=== PATIENT | female | born 1995 | race Caucasian/White ===

== ENCOUNTER 2024-04-29 07:23 | Outpatient (CLI) | payer OTHER ==
[2024-04-29 12:20] LABS: HCT - HEMATOCRIT 30.6 % (37.0-47.0); HGB - HEMOGLOBIN 9.8 g/dL (12.0-16.0); MEAN CORPUSCULAR HEMOGLOBIN 30.3 pg (27.0-31.0); MEAN CORPUSCULAR VOLUME 94.7 fL (81.0-99.0); RED BLOOD COUNT 3.23 10^6/uL (4.20-5.40); RED CELL DISTRIBUTION WIDTH 13.4 % (12.0-15.0); WHITE BLOOD COUNT 11.1 x10^3/uL (4.8-10.8)
[2024-04-30 05:13] LABS: RPR Non Reactive (Non Reactive)
== END 2024-04-29 07:24 ==
LOC: LAB.N 07:23
PROVIDERS: ATTEND Obstetrics & Gynecology
DX: Z34.80 Encounter for supervision of other normal pregnancy, unspecified trimester (principal)
CPT/HCPCS: 36415; 82950; 85027; 86592

== ENCOUNTER 2024-05-03 08:00 | Outpatient (CLI) | payer OTHER ==
[2024-05-03 15:44] LABS: BILIRUBIN,URINE NEGATIVE (NEGATIVE); GLUCOSE, URINE (UA) NEGATIVE (NEGATIVE); KETONES,URINE (UA) NEGATIVE (NEGATIVE); LEUKOCYTE ESTERASE, URINE NEGATIVE (NEGATIVE); NITRITE,URINE NEGATIVE (NEGATIVE); OCCULT BLOOD,URINE TRACE-LYSE (NEGATIVE); PROTEIN,URINE NEGATIVE (NEGATIVE); UROBILINOGEN,URINE 0.2 (NORMAL) E.U./dL (NORMAL)
[2024-05-03 16:01] LABS: CLARITY,URINE CLEAR (CLEAR)
[2024-05-03 16:02] LABS: BACTERIA,URINE None Seen /HPF (None Seen); MUCUS,URINE Few Strands; RBC,URINE 0-5 /HPF (0-5); SQUAMOUS EPITHELIAL CELL,UR NONE SEEN (<= Few); WBC,URINE 0-3 /HPF (0-5)
== END 2024-05-03 23:59 | disposition home or self-care (01) ==
LOC: LAB.WC 08:00
PROVIDERS: ATTEND Obstetrics & Gynecology
DX: R30.0 Dysuria (principal)
CPT/HCPCS: 81001; 87086

== ENCOUNTER 2024-05-27 09:14 | Outpatient (CLI) | payer OTHER ==
[2024-05-27 12:09] LABS: HCT - HEMATOCRIT 34.6 % (37.0-47.0); HGB - HEMOGLOBIN 10.8 g/dL (12.0-16.0); MEAN CORPUSCULAR HEMOGLOBIN 30.2 pg (27.0-31.0); MEAN CORPUSCULAR HGB CONC 31.2 g/dL (32.0-36.0); MEAN CORPUSCULAR VOLUME 96.6 fL (81.0-99.0); MEAN PLATELET VOLUME 11.7 fL (7.9-10.8); RED BLOOD COUNT 3.58 10^6/uL (4.20-5.40); RED CELL DISTRIBUTION WIDTH 15.8 % (12.0-15.0); WHITE BLOOD COUNT 8.3 x10^3/uL (4.8-10.8)
== END 2024-05-27 09:15 | disposition home or self-care (01) ==
LOC: LAB.N 09:14
PROVIDERS: ATTEND Obstetrics & Gynecology
DX: Z34.80 Encounter for supervision of other normal pregnancy, unspecified trimester (principal)
CPT/HCPCS: 36415; 82728; 85027

== ENCOUNTER 2024-05-31 08:00 | Outpatient (CLI) | payer OTHER | END 2024-05-31 23:59 | disposition home or self-care (01) | LOC: LAB.WC 08:00 | PROVIDERS: ATTEND Obstetrics & Gynecology | DX: Z36.85 Encounter for antenatal screening for Streptococcus B (principal) | CPT/HCPCS: 87797 ==

== ENCOUNTER 2024-06-15 10:57 | Outpatient (CLI) | payer OTHER ==
[2024-06-15 11:19] LABS: RUPTURE OF MEMBRANES PLUS NEGATIVE (NEGATIVE)
== END 2024-06-15 10:58 | disposition home or self-care (01) ==
LOC: LAB.WC 10:57
PROVIDERS: ATTEND Obstetrics & Gynecology
DX: O99.891 Other specified diseases and conditions complicating pregnancy (principal); N89.8 Other specified noninflammatory disorders of vagina
CPT/HCPCS: 84112

== ENCOUNTER 2024-06-18 20:55 | Observation (INO) | payer OTHER ==
[2024-06-18] MEDS ORDERED: OXYTOCIN 10 UNIT/ML VIAL IM PRN (21:03)
[2024-06-18] MEDS ORDERED: miSOPROStoL 200 MCG TABLET BC PRN (21:03)
[2024-06-18] MEDS ORDERED: SODIUM CHLORIDE FLUSH 0.9% 10 ML SYRINGE IVP PRN (21:03)
[2024-06-18] MEDS ORDERED: CARBOPROST TROMETHAMINE 250 MCG/ML VIAL IM PRN (21:03)
[2024-06-18] MEDS ORDERED: lidocaine 1% 20 ML MDV ID PRN (21:03)
[2024-06-18] MEDS ORDERED: OXYTOCIN/SODIUM CHLORIDE 500 ML IV PRN (21:03)
[2024-06-18] MEDS ORDERED: TRANEXAMIC ACID IN NACL 1,000 MG/100 ML BAG IV PRN (21:03)
[2024-06-18] MEDS ORDERED: METHYLERGONOVINE 0.2 MG/ML VIAL IM PRN (21:03)
[2024-06-18] MEDS ORDERED: NIFEdipine 10 MG CAPSULE PO PRN (21:47)
[2024-06-18] MEDS ORDERED: TERBUTALINE 1 MG/ML VIAL SUBQ PRN (21:47)
[2024-06-18] MEDS ORDERED: hydrALAZINE INJ 20 MG/ML VIAL IVP PRN ×2 (21:47)
[2024-06-18] MEDS ORDERED: LABETALOL 20 MG/4 ML SYRINGE IVP PRN ×3 (21:47)
[2024-06-18] MEDS ORDERED: fentaNYL 100 MCG/2 ML VIAL IVP PRN (21:47)
[2024-06-18] MEDS ORDERED: ACETAMINOPHEN 500 MG TABLET PO PRN (21:47)
[2024-06-18 21:57] LABS: BASOPHILS % (AUTO) 0.1 %; EOSINOPHILS # (AUTO) 0.1 10^3/uL (0.0-0.7); EOSINOPHILS % (AUTO) 0.7 %; HCT - HEMATOCRIT 36.2 % (37.0-47.0); HGB - HEMOGLOBIN 11.3 g/dL (12.0-16.0); LYMPHOCYTES # (AUTO) 1.6 10^3/uL (1.5-3.5); LYMPHOCYTES % (AUTO) 19.6 %; MEAN CORPUSCULAR HEMOGLOBIN 29.4 pg (27.0-31.0); MEAN CORPUSCULAR HGB CONC 31.2 g/dL (32.0-36.0); MEAN CORPUSCULAR VOLUME 94.3 fL (81.0-99.0); MEAN PLATELET VOLUME 12.3 fL (7.9-10.8); MONOCYTES # (AUTO) 0.7 10^3/uL (0.0-1.0); MONOCYTES % (AUTO) 8.2 %; NEUTROPHILS # (AUTO) 5.9 10^3/uL (1.5-6.6); PLT - PLATELET COUNT 157 10^3/uL (130-450); RED BLOOD COUNT 3.84 10^6/uL (4.20-5.40); RED CELL DISTRIBUTION WIDTH 15.6 % (12.0-15.0); WHITE BLOOD COUNT 8.3 x10^3/uL (4.8-10.8)
[2024-06-18] MEDS ORDERED: LACTATED RINGERS 1,000 ML IV SCH (22:00)
[2024-06-18] MEDS: miSOPROStoL 100 MCG TABLET BC SCH (22:06)
[2024-06-19] MEDS ORDERED: SODIUM CHLORIDE FLUSH 0.9% 10 ML SYRINGE IVP SCH (01:00)
[2024-06-19 06:13] VITALS: BP 107/61; O2SAT 98
--- NOTE | 2024-06-19 07:03 | PHARMACY PROGRESS NOTE ---
- Best Possible Medication History Admit Date and Time: 06/18/242102 Processed by: Nursing As the person ultimately responsible for medication therapy, providers are able to order a medication from an existing home medication list in [facility] via the "Reconcile Routine" prior to Confirmation of that medication by unit support representative. Such practice is discouraged except when the physician, in their clinical judgment, deems that a medical need exists for a medication without regard to previous use.
--- NOTE | 2024-06-19 11:17 | ANESTHESIA ---
Pre-Anesthesia VS, & Labs - Diagnosis labor induction - Procedure labor epidural Vital Signs: Temp Pulse Resp BP Pulse Ox O2 Flow Rate 36.6 C 77 16 107/61 98 06/19/24 06:00 06/19/24 06:00 06/19/24 06:00 06/19/24 06:00 06/19/24 06:00 Height: 5 ft 2 in Weight (kg): 82.554 kg Body Mass Index: 33.3 BMI Classification: Obese - NPO Other (clears after epidural placement) - Is Patient ?: Yes - Lab Results Current Lab Results: Laboratory Tests 06/18/24 22:12: Blood Type A POSITIVE, Antibody Screen NEGATIVE 06/18/24 21:15: Blood Type Recheck A POSITIVE 06/18/24 21:15: WBC 8.3, RBC 3.84 L, Hgb 11.3 L, Hct 36.2 L, MCV 94.3, MCH 29.4, MCHC 31.2 L, RDW 15.6 H, Plt Count 157, MPV 12.3 H, Neut # (Auto) 5.9, Lymph # (Auto) 1.6, [place] # (Auto) 0.7, Eos # (Auto) 0.1, Baso # (Auto) 0.0, Absolute Nucleated RBC 0.00, Nucleated RBC % 0.0 Fish Bones: 06/18/24 21:15 Home Medications and Allergies Home Medications: Ambulatory Orders Aspirin [Adult Aspirin Regimen] 81 mg PO DAILY 06/18/24 Breast Pump 1 each MC PRN PRN 06/18/24 Pnv No.95/Ferrous Fum/Folic AC [ Tablet] 1 each PO DAILY 06/18/24 Active Medications Acetaminophen (Acetaminophen 500 Mg Tablet) 1,000 mg PO Q8H PRN PRN Reason: Mild Pain or Fever>38C(100.4F) Carboprost Tromethamine (Carboprost Tromethamine 250 Mcg/Ml Vial) 250 mcg IM Q15M PRN PRN Reason: Step 4: Hemorrhage protocol Fentanyl (Fentanyl 100 Mcg/2 Ml Vial) 50 mcg IVP Q1H PRN PRN Reason: Severe Pain (score 7-10) Hydralazine HCl (Hydralazine Inj 20 Mg/Ml Vial) 5 - 10 mg IVP Q20M PRN; Protocol PRN Reason: SBP> or= 160 OR DBP> or= 110 Hydralazine HCl (Hydralazine Inj 20 Mg/Ml Vial) 10 mg IVP .ONCE PRN; Protocol PRN Reason: SBP> or= 160 OR DBP> or= 110 Oxytocin/Sodium Chloride (Pitocin/Sodium Chloride) 500 mls @ 999 mls/hr IV PRN PRN; Protocol PRN Reason: POST- HEMORR PREVENTION Stop: 06/23/24 21:04 Tranexamic Acid (Tranexamic 1,000 Mg/100ml-Nacl) 1,000 mg in 100 mls @ 600 mls/hr IV .ONCE PRN PRN Reason: EBL >1200mL and within 3hr Stop: 06/23/24 21:04 Lactated Ringer's (Lr) 1,000 mls @ 100 mls/hr IV .Q10H DIANA Labetalol HCl (Labetalol 20 Mg/4 Ml Syringe) 20 - 80 mg IVP Q10M PRN; Protocol PRN Reason: SBP> or= 160 OR DBP> or= 110 Labetalol HCl (Labetalol 20 Mg/4 Ml Syringe) 20 mg IVP .ONCE PRN; Protocol PRN Reason: SBP> or= 160 OR DBP> or= 110 Labetalol HCl (Labetalol 20 Mg/4 Ml Syringe) 20 - 40 mg IVP Q10M PRN; Protocol PRN Reason: SBP> or= 160 OR DBP> or= 110 Lidocaine HCl (Lidocaine 1% 20 Ml Mdv) 20 ml ID .ONCE PRN PRN Reason: PERINEAL REPAIR Stop: 06/23/24 21:04 Methylergonovine Maleate (Methylergonovine 0.2 Mg/Ml Vial) 0.2 mg IM .ONCE PRN PRN Reason: Step 2: Hemorrhage protocol Stop: 06/23/24 21:04 Misoprostol (Misoprostol 200 Mcg Tablet) 800 mcg BC .ONCE PRN PRN Reason: Step 3: Hemorrhage protocol Stop: 06/23/24 21:04 Misoprostol (Misoprostol 100 Mcg Tablet) 50 mcg BC Q4H DIANA Stop: 06/19/24 18:01 Last Admin: 06/19/24 08:27 Dose: 50 mcg Nifedipine (Nifedipine 10 Mg Capsule) 10 - 20 mg PO Q20M PRN; Protocol PRN Reason: SBP> or= 160 OR DBP> or= 110 Oxytocin (Oxytocin 10 Unit/Ml Vial) 10 unit IM .ONCE PRN PRN Reason: Step one: If no IV access Stop: 06/23/24 21:04 Sodium Chloride (Sodium Chloride Flush 0.9% 10 Ml Syringe) 10 ml IVP 0100,0900,1700 DIANA Sodium Chloride (Sodium Chloride Flush 0.9% 10 Ml Syringe) 10 ml IVP PRN PRN PRN Reason: NEEDED PER PROVIDER ORDERS Terbutaline Sulfate (Terbutaline 1 Mg/Ml Vial) 0.25 mg SUBQ .ONCE PRN PRN Reason: Tachystole Aspirin [Adult Aspirin Regimen] 81 mg PO DAILY 06/18/24 Breast Pump 1 each MC PRN PRN 06/18/24 Pnv No.95/Ferrous Fum/Folic AC [ Tablet] 1 each PO DAILY 06/18/24 Allergies/Adverse Reactions: Allergies Allergy/AdvReac Type Severity Reaction Status Date / Time Penicillins Allergy Rash Verified 06/18/24 23:22 Anes History & Medical History - Anesthetic History Anesthesia Complications: reports: No previous complications - Medical History Smoking Status: Never smoker History of Cancer?: No Exam General: Alert, Oriented x3 Dental: WNL Mouth Opening: Greater than 4 Fingerbreadths Neck Mobility: Normal Mallampati classification: II Thyromental Distance: greater than 6 cm Respiratory: Lungs clear Cardiovascular: Regular rate Plan Anesthesia Type: Epidural Consent for Procedure(s) Verified and Reviewed: Yes Code Status: Attempt Resuscitation ASA classification: 2-Mild systemic disease Is this case an emergency?: No
[2024-06-19] MEDS ORDERED: PRENATAL VITAMIN TABLET PO SCH (12:00)
[2024-06-19] MEDS: miSOPROStoL 100 MCG TABLET VG SCH (14:31)
--- NOTE | 2024-06-19 18:37 | PROVIDER PROGRESS NOTE ---
Labor Progress Note - Uterine Monitoring Uterine Monitoring Mode: positive: External toco Contraction Frequency (min/apart): 2-5 Contraction Intensity: positive: Mild to moderate Uterine Resting Tone: positive: Soft - Monitoring Monitor Mode: positive: External ultrasound Heart Rate Variability: positive: Moderate (6-25 bmp) Accelerations: positive: Present, 15x15 Decelerations: positive: None Strip Review: positive: Category I - Vaginal Exam Dilation (in cm): 0 Effacement (%): 70 Station: -3 Cervical Position: Posterior - Labor Progress Note Labor Progress Note/Additional Text: more uncomfortable with contractions but still closed. had miso x 3 buccal and then 1 vaginal 4 hrs ago. all 50 mcg. very frustrated, crying. it has been with last 2 doses that we had to wait 2 hours or so to give as she was mane so much. she was really hoping to avoid pitocin. but now wants anything to help her baby come. discussed that this is elective induction and we want to have a safe, low stress delivery. seems her body is just not ready yet. I recommend that she waits for 1-2 hours and see if these contractions wear off. if they do, I recommend that she go home and come back in a day or two. with this she shed tears. She was really hoping for labor. but I don't want to do anything overly extreme in the context of elective induction. with her first she says she went into labor with only 1 dose of miso.
--- NOTE | 2024-06-19 19:55 | DISCHARGE SUMMARY ---
Discharge Summary Admit Date: 06/18/24 Discharge Date: 06/19/24 Discharging Provider: Ashley Mercado MD Code Status: Attempt Resuscitation Condition at Discharge: Good Discharge Disposition: 01 Home, Self Care - DIAGNOSES Admission Diagnoses: term , elective induction of labor. Discharge Diagnoses with Status of Each Condition: term , not in labor - HPI History of Present Illness: present for elective labor induction at 39 weeks with her 2nd child. Has childcare and was hoping to deliver while her family is in town. otherwise uncomplicated. - HOSPITAL COURSE Hospital Course: Patient received a total of 4 doses of 50 mcg of misoprostol, 3 buccal and 1 vaginally. She contracted painfully after the last 3 doses and the next dose was put off for about 2 hours. In spite of all these contractions, her cervix remained closed. She was very frustrated. Given that cervix was closed, I would not be able to place a catheter and do not recommend pitocin. I recommend that she go home. We can try again in a couple days. - ALLERGIES Allergies/Adverse Reactions: Allergies Allergy/AdvReac Type Severity Reaction Status Date / Time Penicillins Allergy Rash Verified 06/18/24 23:22 - MEDICATIONS Home Medications: Ambulatory Orders Medication Instructions Recorded Confirmed Aspirin [Adult Aspirin Regimen] 81 mg PO DAILY 06/18/24 06/18/24 Breast Pump 1 each MC PRN PRN 06/18/24 06/18/24 Pnv No.95/Ferrous Fum/Folic AC 1 each PO DAILY 06/18/24 06/18/24 [ Tablet] - PHYSICAL EXAM AT DISCHARGE General Appearance: positive: No acute distress Respiratory: positive: No respiratory distress Cardiovascular: positive: Regular rate & rhythm Physical Exam Other/Comments: cervix closed, 70% and high. very posterior. - LABS Result Diagrams: 06/18/24 21:15 - FOLLOW UP Follow Up: we will call her tomorrow to make a plan. - TIME SPENT Time Spent in Discharge (Minutes): 30
== END 2024-06-19 20:10 | disposition home or self-care (01) ==
LOC: WFO 20:55 → FBP 20:59 → WFO 21:02 → FBP 21:03
PROVIDERS: ADMIT Obstetrics & Gynecology; ATTEND Obstetrics & Gynecology
DX: O61.0 Failed medical induction of labor (principal); Z3A.39 39 weeks gestation of pregnancy; O99.013 Anemia complicating pregnancy, third trimester
CPT/HCPCS: 36415; 85025; 86850; 86900; 86901; A9270; G0378; 99215

== ENCOUNTER 2024-06-20 01:52 | Inpatient (IN) | payer OTHER ==
[2024-06-20] MEDS ORDERED: CARBOPROST TROMETHAMINE 250 MCG/ML VIAL IM PRN (02:10)
[2024-06-20] MEDS ORDERED: lidocaine 1% 20 ML MDV ID PRN (02:10)
[2024-06-20] MEDS ORDERED: hydrALAZINE INJ 20 MG/ML VIAL IVP PRN ×2 (02:10)
[2024-06-20] MEDS ORDERED: METHYLERGONOVINE 0.2 MG/ML VIAL IM PRN (02:10)
[2024-06-20] MEDS ORDERED: TERBUTALINE 1 MG/ML VIAL SUBQ PRN (02:10)
[2024-06-20] MEDS ORDERED: OXYTOCIN 10 UNIT/ML VIAL IM PRN (02:10)
[2024-06-20] MEDS ORDERED: TRANEXAMIC ACID IN NACL 1,000 MG/100 ML BAG IV PRN (02:10)
[2024-06-20] MEDS ORDERED: SODIUM CHLORIDE FLUSH 0.9% 10 ML SYRINGE IVP PRN (02:10)
[2024-06-20] MEDS ORDERED: miSOPROStoL 200 MCG TABLET BC PRN (02:10)
[2024-06-20] MEDS ORDERED: LABETALOL 20 MG/4 ML SYRINGE IVP PRN ×3 (02:10)
[2024-06-20] MEDS ORDERED: miSOPROStoL 200 MCG TABLET PR PRN (02:10)
[2024-06-20] MEDS ORDERED: NIFEdipine 10 MG CAPSULE PO PRN (02:10)
[2024-06-20] MEDS: fentaNYL 100 MCG/2 ML VIAL IVP PRN (02:20)
[2024-06-20] MEDS: LACTATED RINGERS 1,000 ML IV SCH (02:25)
[2024-06-20] MEDS: LACTATED RINGERS 1,000 ML IV PRN (02:26)
[2024-06-20] MEDS ORDERED: ROPIVACAINE 0.2% 200 MG/100 ML BAG EP ONE (02:38)
[2024-06-20] MEDS ORDERED: LIDOCAINE 2%-EPI 1:100000 20 ML MDV ONE (02:38)
[2024-06-20 02:44] LABS: BASOPHILS % (AUTO) 0.1 %; EOSINOPHILS % (AUTO) 0.1 %; HCT - HEMATOCRIT 39.3 % (37.0-47.0); HGB - HEMOGLOBIN 12.3 g/dL (12.0-16.0); LYMPHOCYTES # (AUTO) 1.4 10^3/uL (1.5-3.5); LYMPHOCYTES % (AUTO) 10.2 %; MEAN CORPUSCULAR HEMOGLOBIN 29.2 pg (27.0-31.0); MEAN CORPUSCULAR HGB CONC 31.3 g/dL (32.0-36.0); MEAN CORPUSCULAR VOLUME 93.3 fL (81.0-99.0); MEAN PLATELET VOLUME 12.5 fL (7.9-10.8); MONOCYTES # (AUTO) 0.7 10^3/uL (0.0-1.0); MONOCYTES % (AUTO) 4.9 %; NEUTROPHILS # (AUTO) 11.5 10^3/uL (1.5-6.6); NEUTROPHILS % (AUTO) 84.3 %; PLT - PLATELET COUNT 165 10^3/uL (130-450); RED BLOOD COUNT 4.21 10^6/uL (4.20-5.40); RED CELL DISTRIBUTION WIDTH 15.5 % (12.0-15.0); WHITE BLOOD COUNT 13.6 x10^3/uL (4.8-10.8)
[2024-06-20] MEDS ORDERED: SODIUM CHLORIDE FLUSH 0.9% 10 ML SYRINGE IVP SCH (03:00)
[2024-06-20 03:06] LABS: ALBUMIN 3.5 g/dL (3.2-5.5); ALBUMIN/GLOBULIN RATIO 1.1 (1.0-2.2); BILIRUBIN,TOTAL 0.5 mg/dL (0.2-1.0); CALCIUM 9.2 mg/dL (8.5-10.3); CREATININE 0.6 mg/dL (0.6-1.3); POTASSIUM 3.8 mmol/L (3.5-4.5); TOTAL PROTEIN 6.8 g/dL (6.4-8.9)
--- NOTE | 2024-06-20 03:23 | HISTORY & PHYSICAL EXAMINATION ---
Admit History - : 2 Parity: 1 Care: positive: IW, Other (transfered care to us at 30 weeks. [place] [employer] Risk/History: positive: None Complications This : positive: None Smoking Status: Never smoker - Mother's Labs Mother's Blood Type: positive: A Mother's RH: positive: Positive GBS: positive: Group B Step Negative Rubella Status: positive: Immune - Other Maternal History Other Maternal History: presents with painful contractions. Was admitted 06/18 for induction. had miso x 4 over 24 hours and was still closed so went home about 1999. She continued to be uncomfortable at home. was able to nap for about an hour and then came back in. no SROM. just more painful contractions. ready for epidural. confirmed to be vertex at start of induction by ultrasound. uncomplicated. did have anemia and was started on po iron 05/03. hct 30% then. now 39%. 1 hour glucose 138. weight gain about 40 pounds. 12 pounds with us since 30 weeks. received TDAP at 30 weeks. Flu and RSV vaccines last week. rubella and varicella are immune. no headache. 1+ swelling. first c/b gestational htn so on ASA this . no HTN. EFW 8 pounds. - HPI Current EDU 06/25/24 Gestation 39 Weeks and 2 Days 2 Vital Signs Temperature 97.9 F 06/20/24 02:17 Temperature 97.9 F 06/20/24 02:17 Heart Rate Respiratory Rate Blood Pressure O2 Saturation If not protocol: Oxygen Flow, liters/minute Meds/Allgy - Home Medications Home Medications: Ambulatory Orders Medication Instructions Recorded Confirmed Aspirin [Adult Aspirin Regimen] 81 mg PO DAILY 06/18/24 06/18/24 Breast Pump 1 each MC PRN PRN 06/18/24 06/18/24 Pnv No.95/Ferrous Fum/Folic AC 1 each PO DAILY 06/18/24 06/18/24 [ Tablet] - Allergies Allergies/Adverse Reactions: Allergies Allergy/AdvReac Type Severity Reaction Status Date / Time Penicillins Allergy Rash Verified 06/18/24 23:22 Review of Systems - Other Findings Other Findings: no headache. good movement. no SROM Physical - Abdominal Exam Vital Signs: Temp Pulse Resp BP Pulse Ox O2 Flow Rate 97.9 F 06/20/24 02:17 Contraction Frequency (min/apart): q3 Contraction Intensity: positive: Moderate Uterine Resting Tone: positive: Soft - Monitoring Strip Review: positive: Category I - Presentation Presentation: positive: Vertex - Vaginal Exam Membranes: positive: Membranes intact Dilation (in cm): 3 Effacement (%): 90 Station: positive: -2 (per RN) Plan for Labor - Plan For Labor I expect patient to be DC'd or transferred within 96 hours.: Yes Plan for Labor: admit for labor at term. epidural being placed now. AROM when comfortable. Anticipate .
[2024-06-20] MEDS ORDERED: ROPIVACAINE 0.2% 200 MG/100 ML BAG EP PRN (03:34)
[2024-06-20] MEDS ORDERED: ePHEDrine 50 MG/ML VIAL IVP PRN (03:34)
[2024-06-20] MEDS ORDERED: NALOXONE 0.4 MG/ML VIAL IVP PRN (03:34)
[2024-06-20] MEDS ORDERED: NALBUPHINE 10 MG/ML AMP IVP PRN (03:34)
[2024-06-20] MEDS ORDERED: diphenhydrAMINE INJ 50 MG/ML VIAL IVP PRN (03:34)
[2024-06-20] MEDS ORDERED: METOCLOPRAMIDE 10 MG/2 ML VIAL IVP PRN (03:34)
[2024-06-20] MEDS ORDERED: ONDANSETRON 4 MG/2 ML VIAL IVP PRN (03:34)
--- NOTE | 2024-06-20 03:37 | PROVIDER PROGRESS NOTE ---
Labor Progress Note - Uterine Monitoring Uterine Monitoring Mode: positive: External toco Contraction Frequency (min/apart): 3-4 Contraction Intensity: positive: Moderate to strong Uterine Resting Tone: positive: Soft - Monitoring Monitor Mode: positive: External ultrasound Heart Rate Variability: positive: Moderate (6-25 bmp) Accelerations: positive: Present, 15x15 Decelerations: positive: Variable, Intermittent (<50% x20 min) Strip Review: positive: Category I - Vaginal Exam Dilation (in cm): 5 Effacement (%): 90 Station: -3 Cervical Position: Midposition - Labor Progress Note Labor Progress Note/Additional Text: AROM and clear fluid. epidural and comfortable. hopefully baby's head will come down and she will have baby in next few hours.
[2024-06-20] MEDS: OXYTOCIN/SODIUM CHLORIDE 500 ML IV PRN (10:01)
[2024-06-20] MEDS ORDERED: WITCH HAZEL/GLYCERIN 1 PAD TOP PRN (10:32)
[2024-06-20] MEDS ORDERED: HYDROCORTISONE 1% CREAM 28 GM TUBE PR PRN (10:32)
[2024-06-20] MEDS ORDERED: MEASLES,MUMPS & RUBELLA VACC 0.5 ML VIAL SUBQ ONE (10:32)
--- NOTE | 2024-06-20 10:50 | DELIVERY NOTE ---
Delivery Note - Labor Labor: positive: Augmented by ARM, Augmented by oxytocin - Delivery Method Delivery Method: positive: Vacuum assist (For distress) - Cervical Ripening Method Cervical Ripening Method: positive: Misoprostil - Presentation Presentation: positive: Vertex, NADINE - left occiput anterior - Nuchal Cord Nuchal Cord: positive: Present (x1, reduced after delivery) - Anesthetic Anesthetic Type: - Amniotic Fluid Description Amniotic Fluid Description: positive: Clear - Vacuum Use Indication for Vacuum Use: positive: Suspicion of immediate or potential compromise Type of Vacuum Cup: positive: Cup: Rigid Vacuum Extraction: positive: Successful Number of pop-offs: 0 - Episiotomy Type Episiotomy Type: positive: None - Laceration Laceration: positive: None - Delivery Outcome Delivery Outcome: positive: Livebirth - : positive: Stimulated, Warmed, Warmer used sex: positive: Male - Cord Cord: positive: 3 vessels - Placenta Placenta: positive: Intact, Spontaneous - Estimated Blood Loss Estimated Blood Loss (in cc): 100 - Post Delivery Events Post Delivery Events: positive: Shoulder dystocia - Delivery Comments (Free Text/Narrative) Delivery Comments (Free Text/Narrative): /+2. Maternal pushing with good efforts. Pushed and head descended to +3 and with pushing but now with repetitive decelerations to 90s. Informed verbal consent for VAVD obtained. Comfortable with epidural. Kiwi vacuum applied to flexion point just prior to contraction. Delivery of head achieved with one contraction with vacuum use. No detachments. Vacuum removed. Nuchal cord noted, this was reduced after body delivered. Head retraction noted against perineum and shoulder dystocia identified and called for assistance. Elvira maneuver and then left posterior arm delivered. Body then delivered. Time from head delivery to body 80 seconds. Baby placed on mother's abdomen and cord clamped and cut. Baby brought to warmer and evaluated by pediatric team. Fundus firm. Placenta delivered spontaneously and intact, 3vc. Vagina and perineum inspected- no lacerations. EBL ~ 100cc.
[2024-06-20] MEDS ORDERED: LACTATED RINGERS 1,000 ML IV SCH (11:00)
[2024-06-20] MEDS: IBUPROFEN 800 MG TABLET PO SCH (11:07)
[2024-06-20] MEDS: ACETAMINOPHEN 500 MG TABLET PO SCH (11:07)
--- NOTE | 2024-06-20 11:24 | PHARMACY PROGRESS NOTE ---
- Best Possible Medication History Admit Date and Time: 06/20/24 0210 Processed by: Pharmacy Medications reviewed in ED?: No Medication History completed: Yes Secondary Source(s): Pharmacy records, Insurance records As the person ultimately responsible for medication therapy, providers are able to order a medication from an existing home medication list in [facility] via the "Reconcile Routine" prior to Confirmation of that medication by administrative support technician. Such practice is discouraged except when the physician, in their clinical judgment, deems that a medical need exists for a medication without regard to previous use.
[2024-06-20] MEDS: DOCUSATE SODIUM 100 MG CAPSULE PO SCH (23:27)
[2024-06-21 10:12] VITALS: BP 122/71; O2SAT 98
--- NOTE | 2024-06-21 10:23 | DISCHARGE SUMMARY ---
Discharge Summary Admit Date: 06/20/24 Discharge Date: 06/21/24 Discharging Provider: Sunni Madrigal MD Code Status: Attempt Resuscitation Condition at Discharge: Good Discharge Disposition: 01 Home, Self Care - HOSPITAL COURSE Hospital Course: Admission Diagnosis: - SIUP at term (39wk) - GBS neg - Rh positive - Rubella immune - Varicella immune Discharge Diagnosis: - Same - SHOULDER DYSTOCIA Procedures: VAVD Hospital Course: Maye is a 28 yo who presented at term in labor, following discharge home after attempt at elective IOL. She had a VAVD due to decelerations which was complicated by 80 sec shoulder dystocia, relieved by Elvira and delivery of the posterior arm. EBL 100cc with no lacerations. course uncomplicated. Condition on Discharge: SUBJECTIVE: day 1 s/p The patient feels well. Pain is well controlled with current medications. The baby is doing well. She is . She is ambulating well, tolerating normal diet, urinating without difficulty. Lochia is reported as light. She would like to go home today. OBJECTIVE: Vital signs reviewed GENERAL: NAD CHEST: non labored respirations ABD: soft, non tender, fundus firm EXT: trace lower extremity edema; No evidence of DVT LAB & IMAGING STUDIES: See below PLAN: Plan for discharge home with follow up in clinic in 1 week, OK for virtual appointment for follow up. Reviewed home care instructions and medications. Patient counseled regarding signs and symptoms of infection, excessive bleeding, vaginal rest and activity restrictions. Contraceptive plans to be formalized at visit. Sunni Madrigal MD - ALLERGIES Allergies/Adverse Reactions: Allergies Allergy/AdvReac Type Severity Reaction Status Date / Time Penicillins Allergy Rash Verified 06/18/24 23:22 - MEDICATIONS Home Medications: Ambulatory Orders Medication Instructions Recorded Confirmed Pnv No.95/Ferrous Fum/Folic AC 1 each PO DAILY 06/18/24 06/20/24 [ Tablet] - LABS Result Diagrams: 06/20/24 02:15 06/20/24 02:15
--- NOTE | 2024-06-21 12:32 | Labor Flowsheet ---
Labor Flowsheet Datetime Report Generated by CPN: 06/21/2024 12:32 Datetime: 06/21/2024 10:05 VITAL SIGNS NBP Sys/Faiza/Mean (mmHg): 122 : 71 : 81 Pulse: 73 SpO2 (%): 98 Datetime: 06/20/2024 11:30 Stage of : Recovery Datetime: 06/20/2024 09:30 PAIN Pain Scale: 0 Pain Presence: None/Denies Pain Type: N/A Pain Goal: 4 Datetime: 06/20/2024 09:21 Patient Care Comments: Delivery of placenta Datetime: 06/20/2024 09:20 LaborFlag: Labor Datetime: 06/20/2024 09:15 Frequency (min): 2-3 Pattern: Normal: <= 5 Contractions in 10 Minutes FHR Baseline Rate : 120 Datetime: 06/20/2024 09:00 Variability: Moderate 6-25 bpm Accelerations: None Decelerations: Late; Variable Datetime: 06/20/2024 08:41 MEDICATIONS Pitocin (milliunits): Started @ 2 Medication Comments: augment Datetime: 06/20/2024 08:30 Category: Category II Datetime: 06/20/2024 08:15 COMMUNICATION Communication: RN Reviewed Strip Datetime: 06/20/2024 08:05 VAGINAL EXAM Dilatation (cm): 10.0 Effacement (%): 100 Station: 0 Exam by: Dr. Mercado Vaginal Exam Comments: Start of maternal pushing efforts I/O Interventions: Pena Discontinued Datetime: 06/20/2024 08:00 Duration (sec): 110-150 Datetime: 06/20/2024 07:25 Monitor Interventions for FHR: Ultrasound Adjusted Comments: MHT audible during position change Patient Position/Activity: Right Lateral Datetime: 06/20/2024 07:00 ASSESSMENT A Monitor Mode: Telemetry Datetime: 06/20/2024 05:37 PATIENT CARE IV/Blood Work: IV Bolus Started; IV Bolus Given ml @ 500 Datetime: 06/20/2024 05:22 Notification Reason: Status Update; Status; Labor Status Communication Comments: Dr Mercado notified of recurrent late decelerations after multiple interventi ons. MD request AVE, performed and reported to be unchanged at 7/-2. Pena catheter bulb noted to be in front on head and was reduced, hopeful that will lead to more progress. MD order to give another IVF bolus Datetime: 06/20/2024 05:00 UTERINE ACTIVITY Monitor Mode: External Quality: Strong Resting Tone (Palpate): Relaxed Actions for Decelerations: Other Datetime: 06/20/2024 03:29 Membrane Status: Ruptured Membranes Rupture Method: Artificial Amniotic Fluid Color: Clear Amniotic Fluid Amount: Moderate Amniotic Fluid Odor: None Datetime: 06/20/2024 03:28 Anesthesia Level Check: T11 Datetime: 06/20/2024 03:26 Provider Notified (Name): Dr. Mercado Datetime: 06/20/2024 03:08 Epidural Procedure: Completed Datetime: 06/20/2024 03:00 Contraction Comments: coupling of UC's noted Datetime: 06/20/2024 02:44 ANESTHESIA Epidural Positioning: Sitting Datetime: 06/20/2024 02:43 PROCEDURE TIME OUT Procedure Verify: Correct Patient Identity; Agreement on Procedure to be Done; Correct Patient Posi tion Datetime: 06/20/2024 02:03 Cervix, Consistency: Soft Cervix, Position: Anterior Datetime: 06/19/2024 18:23 Temperature (C): 37.0 Datetime: 06/19/2024 14:31 Cervical Ripening Agents: Cytotec @ Datetime: 06/19/2024 09:56 Monitor Interventions for UA: [place] Adjusted Datetime: 06/19/2024 08:26 Vaginal Bleeding: None Datetime: 06/19/2024 06:00 Respirations: 16 Temperature Route: Axillary Pain Relief Measures: Comfort Measures Pain Coping: Breathing Through Contractions Datetime: 06/19/2024 02:30 FHR Baseline Changes: No Baseline Change Datetime: 06/19/2024 02:00 Pain Location: Abdomen Pain Assessment Comments: reported some stronger cramping, now light. pt able to sleep Datetime: 06/18/2024 22:20 MATERNAL ASSESSMENT Level of Consciousness: Alert Headache: Denies Breath Sounds, Left: Clear and Equal Breath Sounds, Right: Clear and Equal Nausea/Vomiting: Denies RUQ Epigastric Pain: Denies TEACHING Plan of Care: Plan of Care Discussed; Induction Unit Routine: [place] to Room; Call Ledezma Datetime: 06/18/2024 22:00 Presentation 'A': Cephalic (Annotations: by ultrasound ) PRE-INDUCTION CHECKLIST Orders on Chart: Yes H Record Available: Yes Indication Charted: Yes Gestational Age Documented: Yes Consent Signed and on Chart: Yes Status of Cervix Documented: Yes Presentation Documented: Yes 30min of Monitoring Prior: Yes 2 Accels of 15X15 Present: Yes No Late Decels Present: Yes Less than 2 Variable Decels: Yes Pt Meets Criteria for Induction: Yes Labor/Induction: Cervical Ripening Datetime: 06/18/2024 21:50 Membranes Ruptured Date/Time: 06/20/2024 03:30 STAGE 2 Station Vacuum/Forceps Applied: 2
== END 2024-06-21 12:30 | disposition home or self-care (01) | DRG 807 ==
LOC: WFO 01:52 → FBP 01:54 → WFO 02:09 → FBP 02:10
PROVIDERS: ADMIT Obstetrics & Gynecology; ATTEND Obstetrics & Gynecology
PROC: 10907ZC Drainage of Amniotic Fluid, Therapeutic from Products of Conception, Via Natural or Artificial Opening (ICD-10-PCS; principal; 2024-06-20)
PROC: 10D07Z6 Extraction of Products of Conception, Vacuum, Via Natural or Artificial Opening (ICD-10-PCS; 2024-06-20)
DX: O66.0 Obstructed labor due to shoulder dystocia (principal); Z37.0 Single live birth; O76 Abnormality in fetal heart rate and rhythm complicating labor and delivery; O69.81X0 Labor and delivery complicated by cord around neck, without compression, not applicable or unspecified; Z3A.39 39 weeks gestation of pregnancy; O99.013 Anemia complicating pregnancy, third trimester; Z87.59 Personal history of other complications of pregnancy, childbirth and the puerperium; O99.214 Obesity complicating childbirth
CPT/HCPCS: 36415; 59409; 80053; 84443; 85025; 86850; 86900; 86901; A9270; J7120